=== PATIENT | male | born 1990 | race Caucasian/White ===

== ENCOUNTER 2021-01-22 23:23 | Emergency (ER) | payer BC ==
[~2021-01-22] VITALS: Ht 177.8 cm; Wt 114.0 kg
[2021-01-23] MEDS: ACETAMINOPHEN 325MG TABLET PO ONE (00:23)
[2021-01-23] MEDS: BACITRACIN ZINC OINT UDPKT TOP ONE (01:30)
[2021-01-23] MEDS: LIDOCAINE HCL/EPINEPHRINE 1%-EPI 1:100,000 20 ML VIAL INFIL ONE (01:30)
[2021-01-23] MEDS: TETANUS, DIPHTHERIA, PERTUSSIS VAC/PF 0.5ML (>7YR OLD) IM ONE (01:35)
[2021-01-23] MEDS ORDERED: ACET-2708 MT (02:15)
[2021-01-23 02:20] VITALS: BP 141/91
== END 2021-01-23 02:20 | disposition home or self-care (01) ==
LOC: ER 23:23
DX: S81.011A Laceration without foreign body, right knee, initial encounter (principal); W26.8XXA Contact with other sharp object(s), not elsewhere classified, initial encounter; Y93.89 Activity, other specified; Y92.89 Other specified places as the place of occurrence of the external cause; Y99.8 Other external cause status
CPT/HCPCS: 12001; 73562; 90471; 90715; 99283; J3490; L1830; Z7610